=== PATIENT | male | born 2005 | race Two or more races ===

== ENCOUNTER 2024-02-12 23:39 | Observation (INO) | payer OTHER, SELFPAY ==
[2024-02-12 21:52] VITALS: BP 152/81; BMI 23.5
[2024-02-12 21:54] VITALS: BP 152/81
[2024-02-12 22:00] VITALS: BP 155/75
[2024-02-12 22:09] LABS: % Basophils 0.1 % (0-2); % Eosinophils 0.7 % (0-6); % Immature Granulocytes 0.2 % (0-0.5); % Lymphocytes 31.9 % (20.5-51.1); % Monocytes 6.8 % (1.7-9.3); % Neutrophils 60.3 % (42.2-75.2); Absolute Eosinophils 0.1 10^3/uL (0-0.7); Absolute Lymphocytes 3.3 10^3/uL (1.2-3.4); Absolute Monocytes 0.7 10^3/uL (0.1-0.6); Absolute Neutrophils 6.2 10^3/uL (1.4-6.5); Hematocrit 39.7 % (39.0-52.0); Hemoglobin 13.8 g/dL (13.0-18.0); Mean Corp Hgb Conc. 34.8 g/dL (33.0-37.0); Mean Corpuscular Hgb 28.9 pg (27.0-31.0); Mean Corpuscular Volume 83.2 fL (80.0-94.0); Mean Platelet Volume 9.8 fL (7.4-10.4); Nucleated Red Blood Cells % 0 % (-); Platelet Count 224 10^3/uL (130-400); Red Blood Cell Count 4.77 10^6/uL (4.70-6.10); Red Cell Dist. Width 13.8 % (11.5-14.5); White Blood Cell Count 10.3 10^3/uL (4.8-10.8)
[2024-02-12] MEDS: NSS 1000 IV (22:18)
[2024-02-12] MEDS: ATIVAN 0.5 MG IV (22:18)
--- NOTE | 2024-02-12 22:23 | ED.GENMED ---
History of Present Illness
General
Chief Complaint: Seizure
Source: patient
Exam Limitations: none
Time Seen by Provider: 02/12/24 22:11
Nursing documentation reviewed up to this point in time: agreed with
Travel History
Have you had any contact with someone who has COVID-19?: No
Do you have any symptoms of coronavirus? Fever > 100 degrees, chills, cough, shortness of breath, sore throat, loss of taste or smell, muscle aches, or headache?: No
History of Present Illness
History of Present Illness:
Patient with history of seizure disorder after head injury in 2021, who stopped taking Keppra recently, as he has been having seizures despite taking the medication, presents to ED after having witnessed seizure episode, which occurred while he was
walking home. Event was witnessed by bystander who called 911. Patient states that he felt seizure coming on, with sensation of shortness of breath and 'shaking'. Patient reports tongue biting, as well as urinary incontinence. Denies headache.
Denies neck pain. Denies dizziness. Denies nausea or vomiting. Denies recent illness. Patient does admit to smoking marijuana, which he had earlier this evening. Denies taking any other illicit medications.
Review of Systems
Review of Systems
Allergies reviewed?: Yes
All Other Systems: ROS reviewed and negative except as documented in HPI and ROS
Constitutional: Reports no symptoms
EENT: Reports no symptoms
Respiratory: Reports no symptoms
Cardiac: Reports no symptoms
ABD/GI: Reports no symptoms
: Reports no symptoms
Musculoskeletal: Reports no symptoms
Skin: Reports other (Tongue abrasion)
Neurological: Reports headache and other (Seizure)
Phy Exam
Physical Exam
Physical Exam:
Physical Exam
General: no apparent distress, not acutely ill. afebrile
Head: nc/at. eomi
Neck: supple. normal range of motion.
Heart: s1/s2 regular rate and rhythm, no murmur. equal radial pulses.
Lungs: no acute respiratory distress. clear bilaterally
Abdomen: normal bowel sounds. not tender.
Neuro: alert and oriented. no focal neurological deficits
Skin: superficial abrasion noted over the lateral aspect of tongue.
Psychiatric: well kept. interactive and cooperative
Extremities: no edema. no calf tenderness.
Course
Orders/Labs/Results
Orders:
Orders
02/12/24 Breakfast
Regular
At Your Request: Limited Participation
02/12/24 22:00
Electrocardiogram (*1) Urgent
Reason for Study: Tachycardia
EKG- Treatment ONCE
02/12/24 22:01
CMP [Comprehensive Metabolic Panel] Urgent
Complete Blood Count/With Diff Urgent
Creatine Phosphokinase Urgent
Comment: ADD ON
Magnesium Urgent
Comment: ADD ON
02/12/24 22:03
Lorazepam [Ativan] 2 mg .ROUTE .STK-MED ONE
02/12/24 22:16
0.9% Sodium Chloride 1000 ml [Nss] 1,000 ml IV BOLUS
02/12/24 22:17
Add On- LAB Urgent
Tests Added?: magnesium, CPK
Lorazepam [Ativan] 0.5 mg IV NOW STA
02/12/24 22:18
Drug Screen, Urine [Urine Drug Abuse Screen] Urgent
Levetiracetam Injectable [Keppra] 1,000 mg IV NOW STA
02/12/24 22:32
Potassium Chloride [KCl] 40 meq PO NOW STA
02/12/24 22:56
Admit/Transfer Patient As Directed
Co-Sign Provider:
Level of Care: Observation services
Assign to:: Telemetry
Physician / Group: cydney
Diagnosis: seizure
Reason for Telemetry: Arrhythmia
Date to Stop Telemetry: 02/15/24
Time to Stop Telemetry: 11:00
02/12/24 22:57
Code Status As Directed
Resuscitation Status: Full Code
02/12/24 23:43
0.9% Sodium Chloride 1000 ml [Nss] 1,000 ml IV 150 mls/hr
Acetaminophen [Tylenol] 650 mg PO Q4HPRN PRN
Bisacodyl [Dulcolax] 10 mg RECTAL [id number] PRN
Docusate W/Senna [Senokot-S] 1 tablet PO BIDPRN PRN
Lorazepam [Ativan] 1 mg IV Q6HPRN PRN
Polyethylene Glycol Powder [Miralax] 17 grams PO DAILYPRN PRN
02/12/24 23:43
Activity As Directed
Activity Level: As Tolerated
Precautions As Directed
Type of Precautions: Seizure
Venous Foot Pumps As Directed
Location: Bilateral feet
Vital Signs As Directed
Frequency: Per unit guidelines
DX Deep Vein Thrombosis Video Routine
02/13/24 06:00
Basic Metabolic Panel IN AM
Complete Blood Count/No Diff IN AM
Creatine Phosphokinase IN AM
Hemoglobin A1c [Glycohemoglobin (HgbA1c)] IN AM
02/13/24 08:00
Levetiracetam Injectable [Keppra] 1,000 mg IV Q12
02/15/24 11:00
DC Protocol for Telemetry ONCE
Abnormal Lab Results
02/12/24
22:01
Absolute Monos (auto) 0.7 H 10^3/uL
(0.1-0.6)
Potassium 3.0 L mmol/L
(3.5-5.1)
Carbon Dioxide 20 L mmol/L
(22-30)
Glucose 144 H mg/dl
(70-99)
Creatine Kinase 390 H U/L
(55-170)
02/12/24 22:01
02/12/24 22:01
Vital Signs
Initial and Last Documented VS:
Initial Vital Signs
Temp Pulse Resp BP Pulse Ox
99.2 F 117 20 152/81 100
02/12/24 21:52 02/12/24 21:52 02/12/24 21:52 02/12/24 21:52 02/12/24 21:52
Last Documented Vital Signs
Temp Pulse Resp BP Pulse Ox
98.0 F 81 18 111/65 98
02/12/24 23:58 02/12/24 23:58 02/12/24 23:58 02/12/24 23:58 02/12/24 23:58
MDM/Problems Addressed
MDM/Problems Addressed:
History and exam consistent with unfortunate recurrent seizure episode. Pt is currently alert/awake/oriented, without any neurological deficit. As patient has had full workup as an outpatient, including imaging of brain and EEG, with typical seizure
episode, do note feel that any extensive workup, including CT head is warranted at this time. However, as patient is currently not on any medications, and without follow up, will admit the patient for further evaluation and treatment, including
neurology consultation, to determine best course of treatment. Will load patient with Keppra for now.
*Critical Care Note
Total Time (30-74mins, 75-104mins- exclusive of procedures): Not Applicable
ED Attending Note
-
Portions of this chart may have been created with voice recognition software.� Occasional wrong word or��sound alike� substitutions may have occurred due to the inherent limitations of voice recognition software.
Discharge Plan
Departure
Patient Disposition: Admit
Date of Disposition: 02/12/24
Time of Disposition: 22:29
Admit to: Telemetry
Presentation/result/management discussed w/ accepting MD/DO: Hospitalist
Discharge Problem:
Seizure, Acute hypokalemia
Interventions
Interventions:
*Risk Screen - Suicide Last Done: 02/12/24 21:52
*General Assessment Last Done: 02/12/24 21:52
*Neglect/Abuse Screening Last Done: 02/12/24 21:52
ED- Fall Risk Assessment Last Done: 02/12/24 21:52
*ED COVID-19 Vaccine History Last Done: 02/12/24 21:52
*Nursing Disposition Last Done: 02/12/24 23:40
ED- Cardiac Assessment Last Done: 02/12/24 22:03
ED- Neurological Assessment Last Done: 02/12/24 22:03
ED- Pulmonary Assessment Last Done: 02/12/24 22:03
Discharge Date and Time
Discharge Date/Time: 02/12/24 23:30
[2024-02-12 22:24] LABS: AST (SGOT) 33 U/L (17-59); Albumin 4.9 g/dl (3.5-5.0); Alkaline Phosphatase 84 U/L (38-126); Blood Urea Nitrogen 12 mg/dl (9-20); Calcium 10.1 mg/dl (8.4-10.2); Carbon Dioxide 20 mmol/L (22-30); Chloride 102 mmol/L (98-107); Estimated Creatinine Clearance 103 ml/min; Glucose 144 mg/dl (70-99); Sodium 141 mmol/L (135-145); Total Bilirubin 0.6 mg/dl (0.2-1.3); Total Protein 7.7 g/dl (6.3-8.2); eGFR > 60.00
[2024-02-12 22:29] LABS: Creatine Phosphokinase 390 U/L (55-170); Magnesium 1.7 mg/dl (1.6-2.3)
[2024-02-12] MEDS: KEPPRA 1000 MG IV (22:30)
--- NOTE | 2024-02-12 22:33 | HPS.HSE ---
Family Physician
-
Family Physician:
Chief Complaint
-
seizure
History of Present Illness
18 year old with PMH for seizure presented to us with seizure episode while he was walking on the street. patient felt the aura, when he was at home, but he just ignored it, before he walked on the street. patient woke up in the street. he is not
sure, if he hit his head or not. he stopped taking Keppra, as it was not helping with his seizure. it was increased to 750mg couple months ago, but patient stated, he gets seizure activity every few weeks. denied HINES, dizzy. denied chest pain, sob.
denied abdominal pain, v,d. denied dysuria or hematuria. patient was incontinent of urine when he had seizure.
patient received iv Keppra, Ativan, normal saline and potassium oral in ER. admitting for further management.
Medical History
Past Medical History
Past Medical History: Reports Other
Additional Past Medical History:
seizure
Past Surgical History: Reports Other
Additional Past Surgical History:
jaw surgery
Social History
Tobacco: Other (weed)
Alcohol: None
Drug: None
Personal: Single
Living: With Family
Family History
Family History: Not pertinent
Allergies / Home Medications
Allergies reflects when Allergies were last updated in [employer].
Home Medications with original date entered in [employer]
Allergy/Medication List:
Allergies
Allergy/AdvReac Type Severity Reaction Status Date / Time
No Known Allergies Allergy Unverified 02/12/24 21:52
Home Medications
No Meds [No Current Medications] 02/12/24
Review of Systems
-
Constitutional: Reports No Symptoms
EENT: Reports No Symptoms
Respiratory: Reports No Symptoms
Cardiac: Reports No Symptoms
Abdomen/GI: Reports No Symptoms
: Reports No Symptoms
Musculoskeletal: Reports No Symptoms
Skin: Reports No Symptoms
Neurological: Reports No Symptoms
Endocrine: Reports No Symptoms
Hematologic/Lymphatic: Reports No Symptoms
Psych: Reports No Symptoms
Physical Exam
Vital Signs
Vital Signs
Temp Pulse Resp BP Pulse Ox
99.2 F 138 40 155/75 100
02/12/24 21:52 02/12/24 22:00 02/12/24 22:00 02/12/24 22:00 02/12/24 22:00
Physical Exam
General: Well Developed, Well Nourished and No Apparent Distress
HEENT: NormoCephalic, Moist mucous membranes and Atraumatic
Respiratory: Clear
Cardiac: S1/S2 and Regular Rhythm; No Murmur or Rub
GI: Soft, Non Tender, Non Distended and Normal Bowel Sounds; No Organomegaly
Rectal: Deferred by Provider
Musculoskeletal: No Clubbing, No Cyanosis and No Edema
Skin: No Rash
Neuro: AO x 3 and Nonfocal/grossly intact
Psych: Calm
Laboratory Results
-
02/12/24 22:01
02/12/24 22:01
Laboratory Results
Total Bilirubin 0.6 mg/dl (0.2-1.3) 02/12/24 22:01
AST 33 U/L (17-59) 02/12/24 22:01
Alkaline Phosphatase 84 U/L (38-126) 02/12/24 22:01
Data Reviewed
-
Lab Data: Labs Reviewed by me
Impression/Plan
-
#recurrent seizure
-iv Keppra
-Ativan prn
-neuro consulted
-seizure precaution
#hypokalemia likely poor oral intake
- k 3.0
-supplement with oral kcl
-monitor BMP in am
#elevated Glucose likely stress reaction
-obtain a1c in am
#tachycardia likely from dehydration
-HR improved
-fluids continued
#rhabdo from seizure
-CK 390
-fluids continued
-monitor CK in am
#DVT prophylaxis
-scd
#CODE status
-full code
[2024-02-12 22:47] LABS: ALT (SGPT) < 30 U/L (0-50)
[2024-02-12] MEDS: KCL 40 MEQ PO (22:48)
[2024-02-12 23:00] VITALS: BP 133/70
--- NOTE | 2024-02-12 23:43 | PTCARENOTE ---
Pt received from ED to [facility]. Pt oriented to room and call chavez.
[2024-02-12 23:58] VITALS: BP 111/65; BMI 23.1
[2024-02-13] MEDS: NSS 1000 IV (00:12)
[2024-02-13 03:26] VITALS: BP 114/62
[2024-02-13 07:00] VITALS: BP 93/46
[2024-02-13 07:30] LABS: Hematocrit 36.6 % (39.0-52.0); Hemoglobin 11.9 g/dL (13.0-18.0); Mean Corp Hgb Conc. 32.5 g/dL (33.0-37.0); Mean Corpuscular Hgb 28.6 pg (27.0-31.0); Red Blood Cell Count 4.16 10^6/uL (4.70-6.10); Red Cell Dist. Width 13.9 % (11.5-14.5); White Blood Cell Count 9.4 10^3/uL (4.8-10.8)
[2024-02-13 07:50] LABS: Blood Urea Nitrogen 12 mg/dl (9-20); Calcium 8.6 mg/dl (8.4-10.2); Carbon Dioxide 26 mmol/L (22-30); Chloride 110 mmol/L (98-107); Creatine Phosphokinase 378 U/L (55-170); Estimated Creatinine Clearance > 125 ml/min; Glucose 82 mg/dl (70-99); Magnesium 1.8 mg/dl (1.6-2.3); Potassium 4.1 mmol/L (3.5-5.1); Sodium 141 mmol/L (135-145); eGFR > 60.00
[2024-02-13] MEDS: KEPPRA 1000 MG IV (08:09)
[2024-02-13 11:00] VITALS: BP 93/52
--- NOTE | 2024-02-13 11:10 | CM ---
IA completed.
Patient lives with mom in a 2 nd floor apartment, 19 steps to enter.
Patient independent prior to admission without assistive devices.
Patient does not drive or work.
Observation for reviewed.
No hx vn, denies needs.
No PCP, list provided.
Pharmacy: [facility]
Plan: home no needs anticipated.
--- NOTE | 2024-02-13 11:12 | PTCARENOTE ---
notified again of the pt status (mariangel and hypotensive)
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
[2024-02-13 13:23] LABS: Glycohemoglobin (HgbA1c) 5.4 % (4.0-5.6)
[2024-02-13 14:00] VITALS: BP 96/48
[2024-02-13 15:00] VITALS: BP 96/48
--- NOTE | 2024-02-13 15:09 | W.DS.TRANS ---
DC Summary - Reliability Engineer
-
Discharge Instructions:
Discharge Diagnosis/Procedures Seizure disorder
Diet Regular
Instructions:
Stand-Alone Forms:
Changes to Home Medications: Yes
Discharge Medications:
DC Medications w/original date entered in [employer]
levetiracetam 500 mg tablet 1,000 mg (2 x 500 mg) PO BID #120 tabs 02/13/24
Home Medication Changes
Annara initiated
Pending Results: No
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
== END 2024-02-13 16:27 | disposition home or self-care (01) ==
LOC: 4 WEST ACU 23:39
PROVIDERS: Emergency Medicine; Registered Nurse; ADMITTING PHYSICIAN Internal Medicine; ATTENDING PHYSICIAN Internal Medicine; CONSULT PHYSICIAN Student in an Organized Health Care Education/Training Program; EMERGENCY PHYSICIAN Emergency Medicine
DX: G40.909 Epilepsy, unspecified, not intractable, without status epilepticus (principal); R06.02 Shortness of breath; R25.1 Tremor, unspecified; E87.6 Hypokalemia; F12.90 Cannabis use, unspecified, uncomplicated; R73.9 Hyperglycemia, unspecified; M62.82 Rhabdomyolysis; E83.42 Hypomagnesemia; I49.8 Other specified cardiac arrhythmias; W18.39XA Other fall on same level, initial encounter; Y93.01 Activity, walking, marching and hiking; Y92.414 Local residential or business street as the place of occurrence of the external cause; Z91.148 Patient's other noncompliance with medication regimen for other reason; Z81.3 Family history of other psychoactive substance abuse and dependence
CPT/HCPCS: 70450; 80048; 80053; 82550; 83036; 83735; 85025; 85027; 93005; 96374; 96375; 99285; G0378

== ENCOUNTER 2024-02-16 00:26 | Emergency (ER) | payer OTHER, SELFPAY ==
[2024-02-16 00:27] VITALS: BP 130/65
[2024-02-16] MEDS: KEPPRA 1000 MG PO (01:07)
[2024-02-16 01:10] VITALS: BP 132/80
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
== END 2024-02-16 01:25 | disposition home or self-care (01) ==
LOC: EMR 00:26
PROVIDERS: EMERGENCY PHYSICIAN Emergency Medicine
DX: S03.2XXA Dislocation of tooth, initial encounter (principal); Y04.0XXA Assault by unarmed brawl or fight, initial encounter
CPT/HCPCS: 99282

== ENCOUNTER 2024-06-08 18:26 | Emergency (ER) | payer OTHER, SELFPAY ==
[2024-06-08 18:31] VITALS: BP 151/77; BMI 26.2
[2024-06-08 18:40] VITALS: BP 132/73
[2024-06-08 19:00] VITALS: BP 132/54
[2024-06-08 19:05] LABS: % Basophils 0.2 % (0-2); % Eosinophils 1.6 % (0-6); % Immature Granulocytes 0.2 % (0-0.5); % Lymphocytes 26.7 % (20.5-51.1); % Monocytes 9.1 % (1.7-9.3); % Neutrophils 62.2 % (42.2-75.2); Absolute Eosinophils 0.1 10^3/uL (0-0.7); Absolute Lymphocytes 2.2 10^3/uL (1.2-3.4); Absolute Monocytes 0.7 10^3/uL (0.1-0.6); Hematocrit 37.8 % (39.0-52.0); Hemoglobin 12.9 g/dL (13.0-18.0); Mean Corp Hgb Conc. 34.1 g/dL (33.0-37.0); Mean Corpuscular Hgb 28.8 pg (27.0-31.0); Mean Corpuscular Volume 84.4 fL (80.0-94.0); Mean Platelet Volume 10.1 fL (7.4-10.4); Nucleated Red Blood Cells % 0 % (-); Platelet Count 212 10^3/uL (130-400); Red Blood Cell Count 4.48 10^6/uL (4.70-6.10); Red Cell Dist. Width 13.6 % (11.5-14.5); White Blood Cell Count 8.1 10^3/uL (4.8-10.8)
[2024-06-08 19:14] LABS: ALT (SGPT) 17 U/L (0-50); AST (SGOT) 29 U/L (17-59); Albumin 4.8 g/dl (3.5-5.0); Alkaline Phosphatase 58 U/L (38-126); Blood Urea Nitrogen 10 mg/dl (9-20); Calcium 9.5 mg/dl (8.4-10.2); Carbon Dioxide 24 mmol/L (22-30); Chloride 103 mmol/L (98-107); Estimated Creatinine Clearance > 125 ml/min; Glucose 119 mg/dl (70-99); Potassium 3.4 mmol/L (3.5-5.1); Sodium 142 mmol/L (135-145); Total Bilirubin < 0.1 mg/dl (0.2-1.3); Total Protein 7.5 g/dl (6.3-8.2); eGFR > 60.00
[2024-06-08] MEDS: NSS 500 IV (19:39)
[2024-06-08] MEDS: KEPPRA 1000 MG IV (19:39)
--- NOTE | 2024-06-08 19:44 | ED.GENMED ---
History of Present Illness
General
Chief Complaint: Seizure
Source: patient
Exam Limitations: none
Time Seen by Provider: 06/08/24 19:15
History of Present Illness
History of Present Illness:
This is a 18 year old male that is brought in by ambulance with seizure. States that he was at work and he started to get shaky. State that he head a seizure. States that he has not taken his evening medication and has been forgetting to take his
Keppra. States that he usually bites hit tongue and he believes he hit the back of his head. Denies any fever, chills, chest pain, SOB, abd pain, nausea, vomiting, diarrhea, headache, dizziness, urinary burning.
Past History
Past History
ED Past Medical History: Seizures (epilepsy)
ED Past Surgical History: None
Social History
Tobacco: Vaping
Alcohol: None
Drug: Marijuana
Personal: Single
Living: with family (Mom)
Employment: Employed
Review of Systems
Review of Systems
All Other Systems: ROS reviewed and negative except as documented in HPI and ROS
Constitutional: Reports no symptoms; Denies fever or chills
EENT: Reports no symptoms
Respiratory: Reports no symptoms; Denies cough or trouble breathing
Cardiac: Reports no symptoms; Denies chest pain
ABD/GI: Reports no symptoms; Denies abdominal pain, nausea, vomiting or diarrhea
: Reports no symptoms; Denies dysuria, frequency or urgency
Musculoskeletal: Reports no symptoms
Skin: Reports no symptoms
Neurological: Reports no symptoms; Denies dizzy or headache
Psychiatric: Reports no symptoms
Phy Exam
General Physical Exam
General Presentation: no apparent distress
General age: appears stated age
General Skin: warm and dry
General Habitus: normal
General Mental: alert
General Hydration: appears well hydrated
ENT Exam
ENT Exam: TM's normal, pharynx normal, neck supple and other (Bilateral bite garcía on the tongue and the left tip of the tongue)
Eye Exam
Eye Exam: EOMI
Cardiovascular Exam
Cardiovascular Exam: regular rate/rhythm, no edema and normal peripheral pulses
Pulmonary Exam
Pulmonary Exam: lungs clear, no respiratory distress, no rales, chest non tender, no crackles, no rhonchi, no wheezing and no cough
Gastrointestinal Exam
Gastrointestinal Exam: normal bowel sounds, non tender, soft, no organomegaly, no pulsatile mass and non distended
Musculoskeletal Exam
Musculoskeletal Exam: full ROM, no edema and other (Negative for any cervical neck tenderness or shoulder discomfort. )
Skin Exam
Skin Exam: normal color, warm/dry, no rash and no petechia
Psychiatric Exam
Psychiatric Exam: normal mood/affect
Course
Orders/Labs/Results
Orders:
Orders
06/08/24 18:49
CMP [Comprehensive Metabolic Panel] Urgent
Complete Blood Count/With Diff Urgent
06/08/24 19:26
CT Head W/o Iv Contrast Urgent
Comment:
Reason For Exam: seizure with fall hitting back of head
0.9% Sodium Chloride 500 ml [Nss] 500 ml IV BOLUS
Levetiracetam Injectable [Keppra] 1,000 mg IV NOW STA
Abnormal Lab Results
06/08/24
18:49
RBC 4.48 L 10^6/uL
(4.70-6.10)
Hgb 12.9 L g/dL
(13.0-18.0)
Hct 37.8 L %
(39.0-52.0)
Absolute Monos (auto) 0.7 H 10^3/uL
(0.1-0.6)
Potassium 3.4 L mmol/L
(3.5-5.1)
Glucose 119 H mg/dl
(70-99)
Total Bilirubin < 0.1 L mg/dl
(0.2-1.3)
06/08/24 18:49
06/08/24 18:49
H/H slightly low. Glucose nonfasting. Total meir low, Potassium very slightly low.
Vital Signs
Initial and Last Documented VS:
Initial Vital Signs
Temp Pulse Resp BP Pulse Ox
98.6 F 96 18 151/77 96
06/08/24 18:31 06/08/24 18:31 06/08/24 18:31 06/08/24 18:31 06/08/24 18:31
Last Documented Vital Signs
Temp Pulse Resp BP Pulse Ox
98.6 F 91 21 128/60 98
06/08/24 18:31 06/08/24 20:39 06/08/24 20:15 06/08/24 20:00 06/08/24 20:00
MDM/Problems Addressed
Differential Diagnosis Includes:
Seizure,
MDM/Problems Addressed:
This is a 18 year old male that comes in by ambulance after having a seizure at work. States that he has been forgetting to take his medication when he is at work.
Will check labs, CT head and given IV Keppra.
Back into see patient. explained that his CT of his head is normal. Patient was given IV Keppra here and will be discharged home. Patient to follow up with his Neurologist for further evaluation.
Chronic conditions affecting care: Neurological disorder (Seizures)
Acute Exacerbation and/or Progression of Chronic Illness: Neurological disorder (seizures)
*Radiology
Radiology exam reviewed: radiology read reviewed (CT head-Normal)
*Pulse Oximetry
Patient hypoxic: no
*EKG
Interpreted by ED Provider?: NA
Rate: EKG- N/A
*Trucker Interpretation
Rate: normal
Heart Rate: 73
Rhythm: sinus
*Critical Care Note
Total Time (30-74mins, 75-104mins- exclusive of procedures): Not Applicable
ED Attending Note
-
Portions of this chart may have been created with voice recognition software.� Occasional wrong word or��sound alike� substitutions may have occurred due to the inherent limitations of voice recognition software.
Discharge Plan
Departure
Patient Disposition: Home (Routine Discharge)
Date of Disposition: 06/08/24
Time of Disposition: 21:01
Patient with high blood pressure during this ER visit?: No
Condition: Good
Covid-19: Not Applicable
Discharge Problem:
Seizure
Instructions: Seizures, Adult (DC)
Prescriptions:
No Action
levetiracetam 500 mg Tablet
1,000 mg PO BID Qty: 120 1RF
Referrals:
UNKNOWN - PT DOES,NOT KNOW [Family Provider] -
Activity Restrictions/Additional Instructions:
As discussed, your blood work is normal. Your CT of the head is normal. PLEASE TAKE YOUR KEPPRA ORDERED AND FOLLOW UP WITH THE NEUROLOGIST. IF YOU HAVE ANY OTHER CONCERNS PLEASE RETURN TO THE EMERGENCY ROOM.
Interventions
Interventions:
*Risk Screen - Suicide Last Done: 06/08/24 18:31
*General Assessment Last Done: 06/08/24 18:31
*Neglect/Abuse Screening Last Done: 06/08/24 18:31
ED- Fall Risk Assessment Last Done: 06/08/24 18:31
*ED COVID-19 Vaccine History Last Done: 06/08/24 18:31
ED- Cardiac Assessment Last Done: 06/08/24 18:31
ED- Neurological Assessment Last Done: 06/08/24 18:31
ED- Pulmonary Assessment Last Done: 06/08/24 18:31
Discharge Date and Time
Print Language: YORUBA
[2024-06-08 20:00] VITALS: BP 128/60
[2024-06-08 21:42] VITALS: BP 126/82
== END 2024-06-08 21:38 | disposition home or self-care (01) ==
LOC: EMR 18:26
PROVIDERS: Physician Assistant; EMERGENCY PHYSICIAN Student in an Organized Health Care Education/Training Program
DX: G40.909 Epilepsy, unspecified, not intractable, without status epilepticus (principal); F17.290 Nicotine dependence, other tobacco product, uncomplicated
CPT/HCPCS: 99284; 96374; 70450; 80053; 85025

== ENCOUNTER 2024-06-17 15:03 | Inpatient (IN) | payer OTHER, SELFPAY ==
[2024-06-16] MEDS: ATIVAN 1 MG IV (15:02)
[2024-06-16] MEDS: KEPPRA 1000 MG IV (15:03)
--- NOTE | 2024-06-16 15:25 | ED.GENMED ---
History of Present Illness
General
Chief Complaint: Seizure
Source: patient, records and ambulance crew
Time Seen by Provider: 06/16/24 14:56
History of Present Illness
History of Present Illness:
18-year-old male with past medical history of seizure disorder presenting to the emergency department with EMS after he reportedly had a witnessed seizure at work, EMS reports patient did urinate himself but during their transfer patient was fully
awake alert and oriented x 3. EMS did report that they had another provider on scene when patient was postictal. Based off record review patient was here for similar 8 days ago. It was noted at that time that patient was often missing doses of
his keppra. Shortly after arrival to the emergency department patient had a witnessed tonic-clonic seizure by myself and nursing staff. 1 mg of Ativan and 1 g of Keppra given IV with cessation of patient's seizure and postictal state ensued.
Past History
Past History
ED Past Medical History: Seizures (epilepsy)
ED Past Surgical History: Other
Social History
Tobacco: Vaping
Alcohol: None
Drug: Marijuana
Personal: Single
Living: with family (Mom)
Employment: Employed
Review of Systems
Review of Systems
All Other Systems: ROS reviewed and negative except as documented in HPI and ROS
Phy Exam
Physical Exam
Physical Exam:
GENERAL: Actively seizing, increased oral secretions, tonic-clonic movement
EYE: conjunctiva clear
NECK: Supple
ENT: No tongue laceration following cessation of seizure
CARDIAC: Regular rate and rhythm
LUNGS: Clear breath sounds bilaterally, no acute respiratory distress, no wheezes/rales/rhonchi
NEUROLOGICAL: actively seizing and unable to assess
SKIN: Warm and dry, skin intact.
MUSCULOSKELETAL: well perfused.
PSYCH: Unable to assess
Scores
Heart Failure Risk
Heart Failure Risk Score: Not Applicable
Heart Score for Chest Pain Patients
STEMI patient?: Not applicable
Withdrawal Assessment of Alcohol
Withdrawal Assessment Completed?: Not applicable
Course
Orders/Labs/Results
Orders:
Orders
06/16/24 Breakfast
Regular
At Your Request: Full Participation
Does patient need a safe tray?: No
06/16/24 14:54
Levetiracetam Injectable [Keppra] 1,000 mg .ROUTE .STK-MED ONE
06/16/24 14:56
Levetiracetam Injectable [Keppra] 1,000 mg IV NOW STA
Lorazepam [Ativan] 1 mg IV NOW STA
06/16/24 15:34
Basic Metabolic Panel Urgent
Complete Blood Count/With Diff Urgent
Keppra (Levetiracetam) [S] Urgent
06/16/24 16:51
Admit/Transfer Patient As Directed
Co-Sign Provider:
Level of Care: Observation services
Assign to:: Telemetry
Physician / Group: dayami ortiz
Diagnosis: seizure
Reason for Telemetry: Other
Other Reason for Telemetry: seizure
Date to Stop Telemetry: 06/18/24
Time to Stop Telemetry: 11:00
Reason for Hospitalization: seizure
PRN Pain Medication Management As Directed
May give lesser potent ordered pain med per pt: Yes
preference::
Protocol:: Medication orders for pain may be administered in a
manner that supports deferring to patient preference
when the pt is:
- Requesting an ordered lesser potent pain medication.
Least to most potent pain medications are defined
as: acetaminophen < NSAID < tramadol < opioids
(morphine, oxycodone, hydromorphone).
- Requesting a lesser dose of the same medication IF
ORDERED.
- Requesting a less intrusive route of administration
if both routes are prescribed by the provider (PO <
IV).
06/16/24 16:52
Code Status As Directed
Resuscitation Status: Full Code
06/16/24 17:02
NEUROLOGY CONSULT Routine
Consulting Provider: Aquiles Ramos
Was physician already notified: Yes
06/16/24 18:51
0.9% Sodium Chloride 1000 ml [Nss] 1,000 ml IV 100 mls/hr
0.9% Sodium Chloride [Nss (Preservative Free)] 0.5 ml IV Q4HPRN PRN
Acetaminophen [Tylenol] 650 mg PO Q4HPRN PRN
Bisacodyl [Dulcolax] 10 mg RECTAL A65IGSE PRN
Docusate W/Senna [Senokot-S] 1 tablet PO BIDPRN PRN
Lorazepam [Ativan] 1 mg IV Q4HPRN PRN
Polyethylene Glycol Powder [Miralax] 17 grams PO DAILYPRN PRN
06/16/24 18:51
Activity As Directed
Activity Level: As Tolerated
Venous Foot Pumps As Directed
Location: Bilateral feet
Vital Signs As Directed
Frequency: Per unit guidelines
DX Deep Vein Thrombosis Video Routine
06/16/24 19:00
Flush (0.9% Sodium Chloride) [Flush (Nss)] See Dose Instructions IV PER PROTOCOL
06/16/24 19:14
Pt Screening Request from Jeff Routine
06/16/24 20:00
Levetiracetam [Keppra] 1,500 mg PO BID
06/16/24 23:30
Urinalysis Reflex To Culture Routine
Date Specimen was Collected: 06/16/24
Time Specimen was Collected: 17:38
Urine Drug Abuse Screen Stat
Date Specimen was Collected: 06/16/24
Time Specimen was Collected: 17:38
06/17/24 07:39
Basic Metabolic Panel IN AM
Complete Blood Count/No Diff IN AM
06/17/24 08:03
Request for Physical Therapy [NOTICE] Routine
06/17/24 08:41
Fentanyl, Urine Stat
06/18/24 11:00
DC Protocol for Telemetry ONCE
Abnormal Lab Results
06/16/24 06/17/24 06/17/24
15:34 07:39 08:41
RBC 4.54 L 10^6/uL 4.64 L 10^6/uL
(4.70-6.10) (4.70-6.10)
MCHC 32.9 L g/dL
(33.0-37.0)
Abs Immat Gran (auto) 0.1 H 10^3/uL
(0-0.05)
Absolute Neuts (auto) 7.7 H 10^3/uL
(1.4-6.5)
Immature Gran % 0.8 H %
(0-0.5)
Neutrophils % 77.8 H %
(42.2-75.2)
Lymphocytes % 14.1 L %
(20.5-51.1)
Carbon Dioxide 9 L* mmol/L
(22-30)
Glucose 130 H mg/dl
(70-99)
U Benzodiazepines Scrn Positive H
(Negative)
U Marijuana (THC) Screen Positive H
(Negative)
06/17/24 07:39
06/17/24 07:39
Vital Signs
Initial and Last Documented VS:
Initial Vital Signs
Pulse Pulse Ox
110 94
06/16/24 15:08 06/16/24 15:08
Last Documented Vital Signs
Temp Pulse Resp BP Pulse Ox
97.7 F 47 21 115/62 100
06/17/24 15:59 06/17/24 15:59 06/17/24 15:59 06/17/24 15:59 06/17/24 15:59
MDM/Problems Addressed
Differential Diagnosis Includes:
Seizure disorder, status epilepticus, electrolyte imbalance, medication noncompliance
MDM/Problems Addressed:
18-year-old male presenting to the emergency department for evaluation following a seizure that was witnessed while at work, upon getting to the emergency department had an additional tonic-clonic seizure. 1 mg of Ativan and 1 g of Keppra ordered.
Based off record review patient was seen here 8 days ago for similar. It was noted at that time he was missing frequent doses of his Keppra. Had CT scan that was negative. Will send off labs and continue to observe.
Chronic conditions affecting care: Neurological disorder
Acute Exacerbation and/or Progression of Chronic Illness: Neurological disorder
*Pulse Oximetry
Patient hypoxic: no
*Critical Care Note
Total Time (30-74mins, 75-104mins- exclusive of procedures): Not Applicable
Data Reviewed
Review of Other/Old Records Reveals: Labs, Records and Radiology Studies
Source: patient, records and ambulance crew
Patient Management
Discussion with other providers: Hospitalist
Escalation/DeEscalation of care consider admission/obs:
On multiple rechecks patient continues to be very sleepy and while he is arousable to voice and tactile stimuli continues to fall back asleep. Concern for prolonged postictal phase in setting of 2 seizures today. Question status epilepticus. Will
admit for further monitoring and further evaluation. Neurology can be consulted as needed. Hospitalist team accepts.
ED Attending Note
-
Portions of this chart may have been created with voice recognition software.� Occasional wrong word or��sound alike� substitutions may have occurred due to the inherent limitations of voice recognition software.
Discharge Plan
Departure
Patient Disposition: Admit
Date of Disposition: 06/16/24
Time of Disposition: 16:31
Presentation/result/management discussed w/ accepting MD/DO: Hospitalist
Discharge Problem:
Seizure
Interventions
Interventions:
*Risk Screen - Suicide Last Done: 06/16/24 15:15
*General Assessment Last Done: 06/16/24 15:15
*Neglect/Abuse Screening Last Done: 06/16/24 15:15
ED- Fall Risk Assessment Last Done: 06/16/24 18:46
*ED COVID-19 Vaccine History Last Done: 06/16/24 15:15
*Nursing Disposition Last Done: 06/16/24 18:46
ED- Cardiac Assessment Last Done: 06/16/24 15:15
ED- Neurological Assessment Last Done: 06/16/24 15:15
ED- Pulmonary Assessment Last Done: 06/16/24 15:15
Discharge Date and Time
Discharge Date/Time: 06/16/24 18:47
[2024-06-16 15:50] LABS: % Basophils 0.3 % (0-2); % Eosinophils 1.4 % (0-6); % Immature Granulocytes 0.8 % (0-0.5); % Lymphocytes 14.1 % (20.5-51.1); % Monocytes 5.6 % (1.7-9.3); % Neutrophils 77.8 % (42.2-75.2); Absolute Eosinophils 0.1 10^3/uL (0-0.7); Absolute Immature Granulocytes 0.1 10^3/uL (0-0.05); Absolute Lymphocytes 1.4 10^3/uL (1.2-3.4); Absolute Monocytes 0.6 10^3/uL (0.1-0.6); Absolute Neutrophils 7.7 10^3/uL (1.4-6.5); Hematocrit 39.5 % (39.0-52.0); Mean Corp Hgb Conc. 32.9 g/dL (33.0-37.0); Mean Corpuscular Hgb 28.6 pg (27.0-31.0); Nucleated Red Blood Cells % 0 % (-); Platelet Count 208 10^3/uL (130-400); Red Blood Cell Count 4.54 10^6/uL (4.70-6.10); Red Cell Dist. Width 13.3 % (11.5-14.5); White Blood Cell Count 9.9 10^3/uL (4.8-10.8)
[2024-06-16 16:14] VITALS: BP 110/47
[2024-06-16 16:16] LABS: Blood Urea Nitrogen 14 mg/dl (9-20); Calcium 9.5 mg/dl (8.4-10.2); Carbon Dioxide 9 mmol/L (22-30); Chloride 104 mmol/L (98-107); Glucose 130 mg/dl (70-99); Potassium 3.9 mmol/L (3.5-5.1); Sodium 144 mmol/L (135-145); eGFR > 60.00
--- NOTE | 2024-06-16 16:32 | HPS.HSE ---
Family Physician
-
Family Physician: INTERVIEWE UNKNOWN - PT NOT
Chief Complaint
-
seizure
History of Present Illness
18-year-old male with past medical history of seizure disorder presenting to the emergency department with EMS after he reportedly had a witnessed seizure at work. patient stated he missed a dose last weeks. questionable compliance on Keppra. his
last seizure was a week ago. patient had a witnessed tonic clonic seizure in the ER witnessed by ER staff. he thinks, Keppra is not helping with his seizure. he gets the seizure even when he is on it. denied HINES, dizzy. denied fever, chills,chest
pain, sob.denied abdominal pain,n,v,d. denied dysuria or hematuria.
admitting for further management.
Medical History
Past Medical History
Past Medical History: Reports Other
Additional Past Medical History:
seizure
Past Surgical History: Reports None
Social History
Tobacco: Smoker (occasional weeds)
Alcohol: Occasional
Drug: None
Personal: Single
Living: With Family
Family History
Family History: Not pertinent
Allergies / Home Medications
Allergies reflects when Allergies were last updated in [facility].
Home Medications with original date entered in [facility]
Allergy/Medication List:
Allergies
Allergy/AdvReac Type Severity Reaction Status Date / Time
No Known Allergies Allergy Unverified 06/16/24 15:13
Home Medications
levetiracetam 500 mg tablet 1,000 mg (2 x 500 mg) PO BID #120 tabs 02/13/24
Review of Systems
-
Constitutional: Reports No Symptoms
EENT: Reports No Symptoms
Respiratory: Reports No Symptoms
Cardiac: Reports No Symptoms
Abdomen/GI: Reports No Symptoms
: Reports No Symptoms
Musculoskeletal: Reports No Symptoms
Skin: Reports No Symptoms
Neurological: Reports No Symptoms
Endocrine: Reports No Symptoms
Hematologic/Lymphatic: Reports No Symptoms
Psych: Reports No Symptoms
Physical Exam
Vital Signs
Vital Signs
Pulse Resp BP Pulse Ox
94 23 110/47 96
06/16/24 16:15 06/16/24 16:15 06/16/24 16:14 06/16/24 16:15
Physical Exam
General: Well Developed, Well Nourished and No Apparent Distress
HEENT: NormoCephalic, Moist mucous membranes and Atraumatic
Respiratory: Clear
Cardiac: S1/S2 and Regular Rhythm; No Murmur or Rub
GI: Soft, Non Tender, Non Distended and Normal Bowel Sounds; No Organomegaly
Rectal: Deferred by Provider
Musculoskeletal: No Clubbing, No Cyanosis and No Edema
Skin: No Rash
Neuro: AO x 3 and Nonfocal/grossly intact
Psych: Calm
Laboratory Results
-
06/16/24 15:34
06/16/24 15:34
Data Reviewed
-
Lab Data: Labs Reviewed by me
Impression/Plan
-
#seizure with prolonged post ictal phase
-Ativan and Keppra in ER
-continue Ativan prn
-continue Keppra
-neuro consulted
#metabolic acidosis
-co2 9
-fluids continued
#DVT Prophylaxis
-scd
#CODE status
-full code
--- NOTE | 2024-06-16 16:39 | PHANOTE ---
Med Rec Note:
Pt unable to answer questions, home med list compiled from Discharge from from 02/13/24. No recent fills showed in Dr Ocasio.
--- NOTE | 2024-06-16 17:10 | W.PN.UPDATE ---
Update Note
Progress Note Update
This note serves as an addendum to the H&P by internet sales associate THIERNO, Megan JOHNSON
HPI
18M [facility] HX Sz disorder on Keppra, questionable compliance with Keppra [facility] for witnessed tonic clonic Sz at work . Not sustained trauma. On arrival to ER had another episode of Sz. S/P IV Ativan 1mmg and IV Keppra 1000 mg broke the Sz
followed by postictal lethargy.
Upon exam he is awake and alert , follow commands and answered Qs appositely
Last Sz was last week
Labs
Unremarkabel CBC and CMP
HCO3 9
ASSESSMENT & PLAN
Recurrent tonic clonic Sz
associate with prolonged post ictal phase
Non focal neuro exam
- cont Keppra 1000mg BID
- IV Ativan 1mg q4h PRN for break thru sz
- check UA
- check UDS
- supportive care with IVF
- Neuro consult
DVT: SCD
Full code
Obs TLM
[2024-06-16 19:15] VITALS: BMI 23.8
[2024-06-16 19:38] VITALS: BP 113/65
[2024-06-16] MEDS: KEPPRA 1500 MG PO (21:11)
[2024-06-16] MEDS: NSS 1000 IV (21:11)
[2024-06-16 23:58] VITALS: BP 115/69
[2024-06-17 03:45] VITALS: BP 115/75
[2024-06-17 07:50] VITALS: BP 112/61
[2024-06-17 08:37] LABS: Hematocrit 39.8 % (39.0-52.0); Hemoglobin 13.3 g/dL (13.0-18.0); Mean Corp Hgb Conc. 33.4 g/dL (33.0-37.0); Mean Corpuscular Hgb 28.7 pg (27.0-31.0); Mean Corpuscular Volume 85.8 fL (80.0-94.0); Mean Platelet Volume 10.4 fL (7.4-10.4); Platelet Count 193 10^3/uL (130-400); Red Blood Cell Count 4.64 10^6/uL (4.70-6.10); Red Cell Dist. Width 13.4 % (11.5-14.5); White Blood Cell Count 8.9 10^3/uL (4.8-10.8)
[2024-06-17 08:56] LABS: Urine Albumin Negative (Neg - Trace); Urine Bilirubin Negative (Negative); Urine Character Clear (Clear); Urine Color Yellow; Urine Glucose Negative (Negative); Urine Ketone Negative (Negative); Urine Leukocyte Negative (Negative); Urine Nitrite Negative (Negative); Urine Occult Blood Negative (Negative); Urine Urobilinogen Negative (Neg - 1+)
[2024-06-17 09:08] LABS: Blood Urea Nitrogen 13 mg/dl (9-20); Calcium 9.5 mg/dl (8.4-10.2); Carbon Dioxide 28 mmol/L (22-30); Chloride 105 mmol/L (98-107); Estimated Creatinine Clearance > 125 ml/min; Glucose 84 mg/dl (70-99); Potassium 4.1 mmol/L (3.5-5.1); Sodium 142 mmol/L (135-145); eGFR > 60.00
[2024-06-17] MEDS: KEPPRA 1500 MG PO (09:10)
[2024-06-17] MEDS: NSS 1000 IV (09:12)
--- NOTE | 2024-06-17 09:15 | CON.NEURO4 ---
Documented by User: Jasmyne Barrios NP 06/17/24 10:51
Consultation - Neurology 4
-
CONSULTING PHYSICIAN: Aquiles Ramos MD
REFERRING PHYSICIAN: Hospitalists/MOIRA Coronado
DICTATED BY: MOIRA Terrazas
DATE/TIME OF REQUEST: 06/16/24
DATE/TIME OF CONSULTATION: 06/17/24
Reason for Consultation: Seizure
History of Present Illness:
This is a 18-year-old right-handed male with a PMH of head/jaw trauma and seizure disorder who has presented to the hospital on 06/16/24 with report of seizure. Patient has been previously evaluated by our inpatient Neurology office in the past for
breakthrough seizure.
From previous evaluation by Neurology Dr. Fajardo on 02/13/24:
'The patient is a 18-year-old right-handed male with a past ministry of epilepsy presenting the hospital after a seizure episode he had been found walking on the street in [facility] and he had felt an aura sensation tried to
breathe himself through it but then lost consciousness. This was witnessed by bystander who called 911 and he was brought to [place] ED, was given IV levetiracetam and had returned to normal with no postictal state while in the ED, noted to have
mild hypokalemia and hypomagnesemia.
Patient relates that his first seizure was in approximately December 2021. He had had a significant injury while in gym class at the end of 2020 and did require jaw surgery having his jaw wired shut for couple of weeks.
He reports that he can sometimes have an unusual sensation as a type of warning before having a loss of consciousness and generalized seizure. He can at times have only this aura without any generalized seizure and losing consciousness. It is
difficult for him to estimate the frequency of his seizures but he has definitely had several and did have a second seizure in the later part of 2021 prompting him to be started on levetiracetam. Recalls that he been on 750 mg twice daily as his
highest dose and thinks that he did see neurology at one point but he isn't sure where. Patient has stopped levetiracetam since approximately July of last year saying that he did not feel like he could notice any effects from it. His last
seizure before presenting events was approximately 1 month ago.
Patient will sometimes take a dose of marijuana when he feels a seizure coming on. He has no history of LEARNING DISABILITIES SPECIALIST infection no history of childhood seizure no family history of seizures to his knowledge. Denies any recent alcohol use. No other
recreational drugs besides marijuana.'
Last week on 06/08/24 patient was evaluated in [facility] ER for report of breakthrough seizure while at work. Patient had missed a dose of his Keppra and was discharged home on his usual dose 1000mg BID. Then yesterday (06/16/24), patient reports being at
work at [employer] in [place], close to the end of his shift, when he starting to develop a 'shaky sensation' that he commonly experiences prior to his seizures. He proceeded to lost consciousness and reports the next thing he remembers is waking
up on the ambulance stretcher. His coworkers reported that he had whole body shaking. Patient feels like he bit his tongue and knows he was incontinent of urine with this event. He proceeded to have another witnessed seizure in the ER. He was loaded
with Keppra 1000mg and lorazepam 1mg IV x1. Today (06/17/24), he reports feeling back to his baseline despite some fatigue. He is a poor historian about his compliance with taking his Keppra, he thinks he may have missed a dose here or there but
cannot recall. He denies any recent fever, alcohol usage, vomiting/diarrhea, illness, or lack of sleep. He does endorse frequent marijuana usage. Prior to last week, his last seizure had been in February 2024 when he was evalauted here. He notes having
an MRI brain in 2020 at an outside hospital that was normal. He cannot recall if he has an outpatient neurologist or who is filling his Keppra script.
Past Medical History: Seizure disorder, head injury/jaw fracture in gym class 2020
Surgical History: Jaw repair 2020
Family History: Reviewed and noncontributory, no family history of seizure.
Social History: Frequent marijuana usage. +Vaping. Rare alcohol.
Allergies: No known allergies.
Home Medications: See below.
Review of Symptoms:
Patient denies any fever, headache, chest pain, shortness of breath, GI or symptoms.
�Per the HPI.�All systems are reviewed negative except above.
Physical Exam:
The patient is afebrile, abdomen is nondistended, breathing is unlabored, skin is warm and dry, no edema.
Neurologic Examination:
The patient is awake, alert and oriented x 3. He is able to follow commands and answer questions appropriately. There is no aphasia or dysarthria. On cranial nerve assessment, pupils are 3 mm bilateral, round and reactive to light and
accommodation. Visual soto are full. Extraocular movements are intact. Facial sensations are intact and bilaterally symmetrical, there is no facial asymmetry. Hearing is intact bilaterally to normal conversation volume. Tongue palate and uvula are
midline, no evidence of tongue bite. Sternocleidomastoid strengths are full bilaterally. Motor strengths are 5/5 bilateral upper and lower extremities on medical research [place] scale. There is no drift or involuntary movement noted. Deep tendon
reflexes are 2+ bilateral upper and lower extremities and Babinski is absent bilaterally. Coordination is intact by finger to nose bilaterally.
Lab Results: See below.
Neuro Imaging:
1. CT Head 06/08/24: Normal.
Differentials for the patient's presentation include:
1. Seizure disorder with breakthrough generalized seizure; unclear medication compliance, frequent marijuana usage, hx head/jaw trauma.
Patient has the following risk factors for their symptoms: Unclear medication compliance, frequent marijuana usage, hx head/jaw trauma.
Recommendations:
-Continue Keppra 1500mg PO q12hrs.
-Do not see a role for further neurological imaging at this time.
-Patient does not have his drivers license, this event will be reported to [facility]. No driving.
-Patient should follow-up with Neurology as an outpatient, may see the [facility] or one of the physicians.
Discussed patient care with: Dr. Ramos, the patient
Vital Signs and Labs
-
Vital Signs and Labs:
Vital Signs
Temp Pulse Resp BP Pulse Ox
98.7 F 52 22 112/61 100
06/17/24 07:50 06/17/24 07:50 06/17/24 07:50 06/17/24 07:50 06/17/24 07:50
Lab Results
06/17/24 07:39
06/17/24 07:39
Sodium 142 mmol/L (135-145) 06/17/24 07:39
Potassium 4.1 mmol/L (3.5-5.1) 06/17/24 07:39
BUN 13 mg/dl (9-20) 06/17/24 07:39
Glucose 84 mg/dl (70-99) 06/17/24 07:39
Calcium 9.5 mg/dl (8.4-10.2) 06/17/24 07:39
Ur Buprenorphine Negative (Negative) 06/17/24 08:41
Medications
-
Active Medications
Generic Name Dose Route Start Last Admin
Trade Name Freq PRN Reason Stop Dose Admin
Acetaminophen 650 mg 06/16/24 18:51
Acetaminophen 325 Mg Tablet PO 07/14/24 18:50
Q4HPRN PRN
mild pain/HINES/temp> 100.4F
Bisacodyl 10 mg 06/16/24 18:51
Bisacodyl 10 Mg Rectal Suppository RECTAL 07/14/24 18:50
[id number] PRN
constipation
Sodium Chloride 1,000 mls @ 100 mls/hr 06/16/24 18:51 06/17/24 09:12
Nss IV 1,000 mls
.Q10H BRUCE Administration
Levetiracetam 1,500 mg 06/16/24 20:00 06/17/24 09:10
Levetiracetam 500 Mg Regular Release Tablet PO 07/14/24 19:59 1,500 mg
BID BRUCE Administration
Lorazepam 1 mg 06/16/24 18:51
Lorazepam 2 Mg/Ml Vial IV 07/14/24 18:50
Q4HPRN PRN
seizure
Polyethylene Glycol 17 grams 06/16/24 18:51
Polyethylene Glycol Powder 17 Grams Packet PO 07/14/24 18:50
DAILYPRN PRN
constipation
Senna/Docusate Sodium 1 tablet 06/16/24 18:51
Docusate W/Senna (Roseline-Colace) Tablet PO 07/14/24 18:50
BIDPRN PRN
constipation
Sodium Chloride 0 flush 06/16/24 19:00
Sodium Chloride 0.9% (Flush) Syringe IV 07/14/24 18:59
PER PROTOCOL BRUCE
Sodium Chloride 0.5 ml 06/16/24 18:51
Nss (Pf) 10 Ml Vial For Ativan 1 Mg Dose IV 07/14/24 18:50
Q4HPRN PRN
IV LORAZEPAM DILUTION
Home Medications
�Medication �Instructions �Recorded
levetiracetam 500 mg tablet 1,000 mg (2 x 500 mg) PO BID #120 02/13/24
tabs

Documented by User: Aquiles Ramos MD 06/17/24 22:34
Consultation - Neurology 4
-
CONSULTING PHYSICIAN: Aquiles Ramos MD
REFERRING PHYSICIAN: Hospitalists/MOIRA Coronado
DICTATED BY: MOIRA Terrazas
DATE/TIME OF REQUEST: 06/16/24
DATE/TIME OF CONSULTATION: 06/17/24
Reason for Consultation: Seizure
History of Present Illness:
This is a 18-year-old right-handed male with a PMH of head/jaw trauma and seizure disorder who has presented to the hospital on 06/16/24 with report of seizure. Patient has been previously evaluated by our inpatient Neurology office in the past for
breakthrough seizure.
From previous evaluation by Neurology Dr. Fajardo on 02/13/24:
'The patient is a 18-year-old right-handed male with a past ministry of epilepsy presenting the hospital after a seizure episode he had been found walking on the street in [facility] area and he had felt an aura sensation tried to
breathe himself through it but then lost consciousness. This was witnessed by bystander who called 911 and he was brought to [place] ED, was given IV levetiracetam and had returned to normal with no postictal state while in the ED, noted to have
mild hypokalemia and hypomagnesemia.
Patient relates that his first seizure was in approximately December 2021. He had had a significant injury while in gym class at the end of 2020 and did require jaw surgery having his jaw wired shut for couple of weeks.
He reports that he can sometimes have an unusual sensation as a type of warning before having a loss of consciousness and generalized seizure. He can at times have only this aura without any generalized seizure and losing consciousness. It is
difficult for him to estimate the frequency of his seizures but he has definitely had several and did have a second seizure in the later part of 2021 prompting him to be started on levetiracetam. Recalls that he been on 750 mg twice daily as his
highest dose and thinks that he did see neurology at one point but he isn't sure where. Patient has stopped levetiracetam since approximately July of last year saying that he did not feel like he could notice any effects from it. His last
seizure before presenting events was approximately 1 month ago.
Patient will sometimes take a dose of marijuana when he feels a seizure coming on. He has no history of LEARNING DISABILITIES SPECIALIST infection no history of childhood seizure no family history of seizures to his knowledge. Denies any recent alcohol use. No other
recreational drugs besides marijuana.'
Last week on 06/08/24 patient was evaluated in [facility] ER for report of breakthrough seizure while at work. Patient had missed a dose of his Keppra and was discharged home on his usual dose 1000mg BID. Then yesterday (06/16/24), patient reports being at
work at [employer] in [place], close to the end of his shift, when he starting to develop a 'shaky sensation' that he commonly experiences prior to his seizures. He proceeded to lost consciousness and reports the next thing he remembers is waking
up on the ambulance stretcher. His coworkers reported that he had whole body shaking. Patient feels like he bit his tongue and knows he was incontinent of urine with this event. He proceeded to have another witnessed seizure in the ER. He was loaded
with Keppra 1000mg and lorazepam 1mg IV x1. Today (06/17/24), he reports feeling back to his baseline despite some fatigue. He is a poor historian about his compliance with taking his Keppra, he thinks he may have missed a dose here or there but
cannot recall. He denies any recent fever, alcohol usage, vomiting/diarrhea, illness, or lack of sleep. He does endorse frequent marijuana usage. Prior to last week, his last seizure had been in February 2024 when he was evalauted here. He notes having
an MRI brain in 2020 at an outside hospital that was normal. He cannot recall if he has an outpatient neurologist or who is filling his Keppra script.
Past Medical History: Seizure disorder, head injury/jaw fracture in gym class 2020
Surgical History: Jaw repair 2020
Family History: Reviewed and noncontributory, no family history of seizure.
Social History: Frequent marijuana usage. +Vaping. Rare alcohol.
Allergies: No known allergies.
Home Medications: See below.
Review of Symptoms:
Patient denies any fever, headache, chest pain, shortness of breath, GI or symptoms.
�Per the HPI.�All systems are reviewed negative except above.
Physical Exam:
The patient is afebrile, abdomen is nondistended, breathing is unlabored, skin is warm and dry, no edema.
Neurologic Examination:
The patient is awake, alert and oriented x 3. He is able to follow commands and answer questions appropriately. There is no aphasia or dysarthria. On cranial nerve assessment, pupils are 3 mm bilateral, round and reactive to light and
accommodation. Visual soto are full. Extraocular movements are intact. Facial sensations are intact and bilaterally symmetrical, there is no facial asymmetry. Hearing is intact bilaterally to normal conversation volume. Tongue palate and uvula are
midline, no evidence of tongue bite. Sternocleidomastoid strengths are full bilaterally. Motor strengths are 5/5 bilateral upper and lower extremities on medical research [place] scale. There is no drift or involuntary movement noted. Deep tendon
reflexes are 2+ bilateral upper and lower extremities and Babinski is absent bilaterally. Coordination is intact by finger to nose bilaterally.
Lab Results: See below.
Neuro Imaging:
1. CT Head 06/08/24: Normal.
Differentials for the patient's presentation include:
1. Seizure disorder with breakthrough generalized seizure; unclear medication compliance, frequent marijuana usage, hx head/jaw trauma.
Patient has the following risk factors for their symptoms: Unclear medication compliance, frequent marijuana usage, hx head/jaw trauma.
Recommendations:
-Continue Keppra 1500mg PO q12hrs.
-Do not see a role for further neurological imaging at this time.
-Patient does not have his drivers license, this event will be reported to [facility]. No driving.
-Patient should follow-up with Neurology as an outpatient, may see the [facility] or one of the physicians.
Discussed patient care with: Dr. Ramos, the patient
Neurology Attending Note:
CC: Seizure
HPI:18-year-old right-handed male with a PMH of head/jaw trauma and seizure disorder who was admitted with breakthrough seizure on Keppra 1000mg BID.
Compliance uncertain. Was given Keppra 100mg IV x1 on admission.
O/E: Awake alert Ox 3 Speech fluent. CN: Non focal exam. Motor exam No deficits. Sensory Intact Gait WNL
A/P: Seizure d/o
PLAN: Keppra 1500mg BID
Seizure /fall precautions
EEG
Do Not drive
[2024-06-17 09:19] LABS: Amphetamines Negative (Negative); Barbiturates Negative (Negative); Benzodiazepines Positive (Negative); Buprenorphine Negative (Negative); Cocaine Negative (Negative); Marijuana Positive (Negative); Methadone Negative (Negative); Methamphetamines Negative (Negative); Opiates Negative (Negative); Phencyclidine Negative (Negative); Tricyclic Antidepressants Negative (Negative)
[2024-06-17 09:30] LABS: Fentanyl, Urine Negative (Negative)
[2024-06-17 11:09] VITALS: BP 125/59
--- NOTE | 2024-06-17 15:04 | W.PN.HOSP.TC ---
Today's Communication/Plan
-
DC
Assessment / Plan
Assessment / Plan
18yo M with PMHx of epilepsy came with breakthrough seizures. No recent fevers or change in meds. Neuroloy recommended increase Keppra to 1500mg q12h and no further imaging. remained seizure free and stable for discharge
A/P:
#Seizure d/o with breakthrough seizures and postictal state
neurology followed - keppra increased
Seizsure free and not confused
#Metabolic acidosis 2/2 seizures
resolved
DVT ppx SCDs
full code
Anticipated Discharge: Today
Subjective/Interval History
-
Date of Service: June 17, 2024
Objective Data
-
Labs:
Laboratory Results
06/17/24
07:39
WBC 8.9
Hgb 13.3
Hct 39.8
Plt Count 193
Sodium 142
Potassium 4.1
Chloride 105
Carbon Dioxide 28
BUN 13
Creatinine 0.8
Glucose 84
Calcium 9.5
Vital Signs:
Vital Signs
Temp Pulse Resp BP Pulse Ox
98.6 F 70 22 125/59 98
06/17/24 11:09 06/17/24 11:09 06/17/24 11:09 06/17/24 11:09 06/17/24 11:09
I&O
06/16/24 06/17/24 06/18/24
06:59 06:59 06:59
Intake Total 890 / 890
Balance 890 / 890
Review of Systems
-
History Source: Patient
All other systems: Reviewed and negative
Physical Exam
-
General: No Apparent Distress
HEENT: Other (b/l posterior tongue bites)
GI: Nontender and Nondistended
Musculoskeletal: No Clubbing, No Cyanosis and No Edema
Psych: Calm
--- NOTE | 2024-06-17 15:07 | W.DCSUMMARY ---
Discharge Summary
Discharge Data
Date of Admission: 06/16/24
Date of Discharge: 06/17/24
-
Pending Results: No
Hospital Course
18yo M with PMHx of epilepsy came with breakthrough seizures. No recent fevers or change in meds. Neuroloy recommended increase Keppra to 1500mg q12h and no further imaging. remained seizure free and stable for discharge. Remained not confused and
seizure free on the day of d/c
I have spent at least 38min discharging the patient
A/P:
#Seizure d/o with breakthrough seizures and postictal state
#Metabolic acidosis 2/2 seizures
Discharge Plan
-
Patient Disposition: Home (Routine Discharge)
Discharge Diagnosis/Procedures: Seizure d/o
Diet: Regular
Activity: No restrictions
Driving Restrictions: No driving
Referrals:
UNKNOWN - PT NOT,INTERVIEWE [Family Provider] -
Prescriptions:
New
levetiracetam 500 mg Tablet
1,500 mg PO BID Qty: 180 0RF
Discontinued
levetiracetam 500 mg Tablet
1,000 mg PO BID Qty: 120 1RF
Patient Comments:
06/16/2024: Pt unable to confirm, no recently fills showed in dr chopra. Keppra prescribed in February 2024 upon discharge.
Discharge Orders:
Discharge Patient (As Directed); Ordered 06/17/24
Ordered By: Ron Dietrich
Discharge Date and Time
Print Language: ECUADOREAN
--- NOTE | 2024-06-17 15:30 | CM ---
Addendum entered by Sharmila Miner 06/18/24 08:22:
Late entry: Patient seen bedside, discussed plan for discharge. Patient will call mother for assistance with transportation. Patient provided with number from insurance for [facility].
Original Note:
CM reviewed chart, patient for discharge today. Patient seen bedside asleep, CM offered to call family for [place], patient asking CM to return at a later time. CM will return to complete assessment/discharge planning needs.
Plan; home no needs.
[2024-06-17 15:59] VITALS: BP 115/62
[2024-06-17] MEDS: AFLURIA (36 mos+) 2024-2025 FORMULA 0.5 ML IM (18:33)
[2024-06-17] MEDS: NSS IV (18:38)
[2024-06-18 22:12] LABS: Keppra (Levetiracetam) 25 ug/mL (10-40)
== END 2024-06-17 18:39 | disposition home or self-care (01) | DRG 101 ==
LOC: 4 WEST ACU 15:03
PROVIDERS: Physician Assistant Medical; Registered Nurse; ADMITTING PHYSICIAN Internal Medicine; ATTENDING PHYSICIAN Internal Medicine; CONSULT PHYSICIAN Psychiatry & Neurology Neurology; EMERGENCY PHYSICIAN Emergency Medicine
DX: G40.409 Other generalized epilepsy and epileptic syndromes, not intractable, without status epilepticus (principal); E87.20 Acidosis, unspecified; F17.200 Nicotine dependence, unspecified, uncomplicated
CPT/HCPCS: 80048; 80177; 80306; 80307; 81003; 85025; 85027; 96374; 96375; 99285